=== PATIENT | male | born 2000 | race Caucasian/White ===

== ENCOUNTER 2019-01-20 11:03 | Emergency (ER) | payer OTHER ==
[~2019-01-20] VITALS: Ht 182.9 cm; Wt 65.3 kg
[2019-01-20 11:05] VITALS: BP 118/64
[2019-01-20] MEDS ORDERED: LIDOCAINE-MPF 1%, 5ML INFIL ONE (11:30)
[2019-01-20] MEDS ORDERED: LIDOCAINE-MPF 1%, 2ML ONE (11:50)
--- NOTE | 2019-01-20 11:52 | NUR ---
PT HERE FOR RIGHT PINKY FINGER CRUSH INJURY WITH GOOD CAP REFILL PRESENT.
[2019-01-20] MEDS ORDERED: CEPHALEXIN 500 MG CAPSULE ONE (12:16)
--- NOTE | 2019-01-20 12:19 | NUR ---
AFTER SPLINT AND WOUND CARE APPLICATION. Patient/Caregiver given discharge instructions and they have confirmed that they understand the instructions. Patient ambulatory with steady gait.
[2019-01-20] MEDS ORDERED: CEPHALEXIN 500 MG CAPSULE PO ONE (12:30)
== END 2019-01-20 12:22 | disposition home or self-care (01) ==
LOC: ED 12:15
DX: S62.666B Nondisplaced fracture of distal phalanx of right little finger, initial encounter for open fracture (principal); S61.216A Laceration without foreign body of right little finger without damage to nail, initial encounter; X58.XXXA Exposure to other specified factors, initial encounter; Y93.89 Activity, other specified; Y92.009 Unspecified place in unspecified non-institutional (private) residence as the place of occurrence of the external cause; Y99.8 Other external cause status
CPT/HCPCS: 12041; 29130